=== PATIENT | female | born 1955 | race Caucasian/White ===

== ENCOUNTER 2019-06-14 12:58 | Day surgery (SDC) | payer OTHER ==
[2019-06-14] MEDS ORDERED: PROPOFOL 200 MG INJ (15:50)
[2019-06-14] MEDS ORDERED: PROPOFOL 20 ML (15:51)
[2019-06-14] MEDS ORDERED: LIDOCAINE 100 MG SYRINGE (15:51)
== END 2019-06-14 18:06 | disposition home or self-care (01) ==
LOC: GIL 12:58
DX: Z12.11 Encounter for screening for malignant neoplasm of colon (principal); K64.9 Unspecified hemorrhoids; E11.9 Type 2 diabetes mellitus without complications; I10 Essential (primary) hypertension; Z79.84 Long term (current) use of oral hypoglycemic drugs
CPT/HCPCS: 45378; 82962